=== PATIENT | female | born 1985 | race Caucasian/White ===

== ENCOUNTER 2022-05-03 03:01 | Emergency (ER) | payer SELFPAY ==
[~2022-05-03] VITALS: Ht 170.2 cm; Wt 59.0 kg
[2022-05-03 03:13] VITALS: BP 109/67
--- NOTE | 2022-05-03 03:13 | NUR ---
ADELE FROM "[facility] FOR MID EPIGASTRIC PAIN X1DAY +N/V. A/O4. SAFETY MEASURES IN PLACE.
--- NOTE | 2022-05-03 03:21 | NUR ---
URINE COLLECTED AND SENT TO LAB
--- NOTE | 2022-05-03 03:23 | NUR ---
DR. CARI BAIG AT PT'S BEDSIDE
[2022-05-03] MEDS ORDERED: BUPRENORPHINE HCL 8 MG TAB.SUBL SL ONE ×2 (03:26→03:30)
[2022-05-03] MEDS ORDERED: ONDANSETRON HCL/PF 4 MG/2 ML VIAL IVP ONE (03:30)
[2022-05-03] MEDS ORDERED: IV NS 0.9% 1,000 ML BAG IV ONE (03:30)
--- NOTE | 2022-05-03 03:37 | NUR ---
Note marifer in EDM - 05/03/22 at 0339 by SUHA Patient does not wish to proceed with medical care recommended by Dr. Benítez. Patient given information related to possible complications, up to and including , which could occur as a result of leaving the hospital at this time. Patient verbalizes understanding of risks involved due to leaving against medical advice. Patient has signed AMA form. Pt ambulatory with a steady gait. Pt Picked up by Ban Barroso [phone] [employer] shift lead from [facility]
--- NOTE | 2022-05-03 03:38 | NUR ---
Patient does not wish to proceed with medical care recommended by Dr. Benítez. Patient given information related to possible complications, up to and including , which could occur as a result of leaving the hospital at this time. Patient verbalizes understanding of risks involved due to leaving against medical advice. Patient has signed AMA form. DC via W/C. Pt Picked up by Ban Barroso [phone] Sober manager technical support from [facility]
[2022-05-03 04:01] LABS: BILIRUBIN,URINE NEGATIVE (NEGATIVE); COLOR,URINE YELLOW (YELLOW); LEUKOCYTE ESTERASE ,URINE NEGATIVE (NEGATIVE); NITRITE, URINE NEGATIVE (NEGATIVE); PH,URINE 6.5 (5.0-8.0); PROTEIN,URINE NEGATIVE (NEGATIVE); UGLUCOSE NEGATIVE (NEGATIVE); UROBILINOGEN,URINE 0.2 EU/dL (0.2)
== END 2022-05-03 04:59 | disposition left against medical advice (07) ==
LOC: ER 03:16
DX: F11.23 Opioid dependence with withdrawal (principal)
CPT/HCPCS: J7030